=== PATIENT | female | born 1985 | race Caucasian/White ===

== ENCOUNTER → 2020-10-18 | Outpatient (CLI) | payer OTHER ==
--- NOTE | 2020-10-18 17:28 | RAD ---
US PELVIS W/TV History: Reason: AUB / Spl. Instructions: / History: Comparison: None Technique: Grayscale and color Doppler imaging of the pelvis was performed using transabdominal and t ransvaginal technique. Findings: The uterus measures 8.5 x 4.9 x 3.8 cm. Uterus has an unremarkable appearance. The endometrial stri pe measures 7 mm. Right ovary measures 2.0 x 1.6 x 1.5 cm. Left ovary measures 2.2 x 2.1 x 1.1 cm. Normal Doppler flow to the ovaries. No adnexal masses are seen. Small pelvic free fluid, likely physi ologic. IMPRESSION: 1. Unremarkable pelvic ultrasound. Electronically signed by: Bony Zeng DO (10/18/2020 5:26 PM) [id number]
== END ==
LOC: US 10:45
PROVIDERS: ATTEND Obstetrics & Gynecology
DX: N93.9 Abnormal uterine and vaginal bleeding, unspecified (principal); R79.89 Other specified abnormal findings of blood chemistry; E34.9 Endocrine disorder, unspecified
CPT/HCPCS: 76830; 76856